=== PATIENT | male | born 1980 | race Hispanic/Latino ===

== ENCOUNTER 2017-07-06 14:18 | Outpatient (CLI) | payer BC ==
--- NOTE | 2017-07-06 14:56 | RAD ---
THREE VIEWS LUMBOSACRAL SPINE: Comparison: None. History: Low back pain with radiculopathy. FINDINGS: Three views of the lumbosacral spine shows normal height and alignment of the vertebral bodies and in tervertebral discs without fracture or subluxation. No degenerative changes are seen. IMPRESSION: Unremarkable exam. POS: [facility]
== END 2017-07-06 14:19 | disposition home or self-care (01) ==
LOC: RAD 14:18
PROVIDERS: ATTEND Family Medicine
DX: M54.5 Low back pain (principal)
CPT/HCPCS: 72100

== ENCOUNTER 2018-07-14 12:43 | Emergency (ER) | payer BC, SELFPAY | END 2018-07-14 13:43 | disposition home or self-care (01) | LOC: SCSER 12:43 | DX: J06.9 Acute upper respiratory infection, unspecified (principal); F17.200 Nicotine dependence, unspecified, uncomplicated | CPT/HCPCS: 87804; 99283 ==

== ENCOUNTER 2018-11-10 19:47 | Emergency (ER) | payer BC, SELFPAY ==
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
[2018-11-10] MEDS ORDERED: HYDROcodone/Acetaminophen 10/325 mg Tablet ONE (20:51)
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
== END 2018-11-10 21:40 | disposition home or self-care (01) ==
LOC: ERS 19:47
DX: M54.2 Cervicalgia (principal); V43.92XA Unspecified car occupant injured in collision with other type car in traffic accident, initial encounter
CPT/HCPCS: 70450; 71045; 72125; 72128